=== PATIENT | female | born 1960 | race African-American/Black ===

== ENCOUNTER 2023-07-15 22:56 | Emergency (ER) | payer OTHER ==
[2023-07-16] MEDS ORDERED: Ketorolac Tromethamine 30 MG/ML VIAL ONE (00:43)
== END 2023-07-16 06:13 | disposition home or self-care (01) ==
LOC: ERS 22:56
DX: M54.50 Low back pain, unspecified (principal); E11.9 Type 2 diabetes mellitus without complications; E78.00 Pure hypercholesterolemia, unspecified; I10 Essential (primary) hypertension; F17.210 Nicotine dependence, cigarettes, uncomplicated; Z79.899 Other long term (current) drug therapy
CPT/HCPCS: 72128; 72131; 96372; J1885